=== PATIENT | male | born 1935 | race Caucasian/White ===

== ENCOUNTER 2017-12-03 06:42 | Inpatient (IN) | payer BC, MEDICARE ==
--- NOTE | 2017-11-19 09:26 | ANES ---
Anesthesia Pre Procedure Eval HOME MEDICATIONS blood sugar diagnostic strips See Dose Instructions .ROUTE .MEDSUPPLY #20 ea 10/15 [Last Taken Unknown] digoxin 250 mcg tablet 0.25 mg PO DAILY 11/04/17 [Last Taken Unknown] fenofibrate nanocrystallized 48 mg tablet 48 mg PO DAILY 11/04/17 [Last Taken Unknown] gemfibrozil 600 mg tablet 600 mg PO BID 11/04/17 [Last Taken Unknown] insulin U-100 regular human 100 unit/mL injection solution 1 sliding scale dose SUB-Q .COMPLEX 11/04/17 [Last Taken Unknown] insulin glargine (U-100) 100 unit/mL (3 mL) subcutaneous pen 15 unit SUB-Q DAILY 11/04/17 [Last Taken Unknown] insulin glargine (U-100) 100 unit/mL (3 mL) subcutaneous pen 24 unit SUB-Q DAILY 11/04/17 [Last Taken Unknown] lancets 30 gauge See Dose Instructions .ROUTE .MEDSUPPLY #25 ea 11/04/17 [Last Taken Unknown] levothyroxine 125 mcg capsule 125 mcg PO DAILY 11/04/17 [Last Taken Unknown] lisinopril 2.5 mg tablet 2.5 mg PO DAILY 11/04/17 [Last Taken Unknown] metformin 850 mg tablet 850 mg PO TID 11/04/17 [Last Taken Unknown] pen needle, diabetic 32 gauge x 5/32" See Dose Instructions .ROUTE .MEDSUPPLY # 10 ea 11/04/17 [Last Taken Unknown] pravastatin 20 mg tablet 20 mg PO DAILY tab 11/04/17 [Last Taken Unknown] tamsulosin 0.4 mg capsule 0.4 mg PO DAILY 11/04/17 [Last Taken Unknown] warfarin 1 mg tablet 1 mg PO DAILY 11/04/17 [Last Taken Unknown] warfarin 5 mg tablet 5 mg PO DAILY 11/04/17 [Last Taken Unknown] Allergies/Adverse Reactions: Allergies Allergy/AdvReac Type Severity Reaction Status Date / Time No Known Allergies Allergy Unverified 11/04/17 10:08 - Planned Procedure Planned Procedure: Left Total Knee Arthroplasty Medication List Reviewed:: Yes Allergies Verified: Yes Medical History (Last Reviewed 11/19/17 @ 09:21 by Koko Tan CRNA) Urinary incontinence (Chronic) Onset Date: Unknown Hypothyroidism (Chronic) Onset Date: Unknown HTN (hypertension) (Chronic) Onset Date: Unknown Diabetes mellitus type 2, controlled, 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 Mother No problems noted. Brother No problems noted. - Family Anesthesia History Family History:: no untoward family reactions to anesthesia, no familial bleeding tendencies, no family history of clotting disorders, no family history of premature - Airway/Neck/Teeth Within Normal Limits:: Yes Teeth Condition: Intact, Stained Neck Exam: non-tender, full range of motion, normal alignment Mallampatti Score: 2 Thyromental (T-M) distance: > 6 cm Mandibulo Hyoid distance: > 3 cm - Respiratory Respiratory: chest non-tender, lungs clear, normal breath sounds Smoking Status: Never smoker Sleep Apnea currently treated: No Sleep Apnea by current assessment: No - Cardiovascular Patient History - Cardiac/Respiratory: Arrhythmias, Hypertension - Hx VSD repair , takes insulin in am. Heart Sounds: S1 & S2, Irregular, Murmur - Anesthesia Assessment and Plan ASA Class: PS, III Anesthesia Type Plan: Block - Adductor canal block for post op pain relief, Spinal - check INR Planned difficult intubation/equipment available: No
[~2017-12-03 06:42] MED LIST: MORPHINE SULFATE 15 MG TABLET.SA PO PRN; ROPIVACAINE HCL/PF 100 MG, EPINEPHrine 0.2 MG in NORMAL SALINE 100 ML IJ PRN; TRANEXAMIC ACID 1,000 MG in NORMAL SALINE 100 ML IV PRN; ceFAZolin SODIUM 1 GM VIAL IV PRN
[2017-12-03 08:55] LABS: INR 1.4 INR (0.90-1.10)
[2017-12-03] MEDS: RINGER'S SOLUTION,LACTATED 1,000 ML IV PRN ×3 (09:32→15:38)
--- NOTE | 2017-12-03 10:57 | ANES ---
Anesthesia Pre Procedure Eval Vitals/Labs: Last Vital Signs Temp 36.0 C 12/03/17 08:26 Pulse 58 L 12/03/17 08:26 Resp 18 12/03/17 08:26 BP 163/79 H 12/03/17 08:26 Pulse Ox 98 12/03/17 08:26 HOME MEDICATIONS blood sugar diagnostic strips See Dose Instructions .ROUTE .MEDSUPPLY #20 ea 10/15 [Last Taken 11/29/17] digoxin 250 mcg tablet 0.25 mg PO DAILY 11/04/17 [Last Taken 11/29/17] gemfibrozil 600 mg tablet 600 mg PO BID 11/04/17 [Last Taken 11/29/17] lancets 30 gauge See Dose Instructions .ROUTE .MEDSUPPLY #25 ea 11/04/17 [Last Taken Unknown] levothyroxine 125 mcg capsule 125 mcg PO DAILY 11/04/17 [Last Taken 11/29/17] lisinopril 2.5 mg tablet 2.5 mg PO DAILY 11/04/17 [Last Taken 11/29/17] metformin 850 mg tablet 850 mg PO TID 11/04/17 [Last Taken 11/29/17] pen needle, diabetic 32 gauge x 5/32" See Dose Instructions .ROUTE .MEDSUPPLY # 10 ea 11/04/17 [Last Taken Unknown] pravastatin 20 mg tablet 20 mg PO DAILY tab 11/04/17 [Last Taken 11/29/17] tamsulosin 0.4 mg capsule 0.4 mg PO DAILY 11/04/17 [Last Taken 11/29/17] warfarin 1 mg tablet 1 mg PO DAILY 11/04/17 [Last Taken 11/29/17] warfarin 5 mg tablet 5 mg PO DAILY 11/04/17 [Last Taken 11/29/17] insulin glargine (U-100) 100 unit/mL (3 mL) subcutaneous pen 24 unit SUB-Q DAILY ml 11/25/17 [Last Taken 11/29/17] aspirin 81 mg tablet,delayed release 81 mg PO DAILY 11/27/17 [Last Taken ] Allergies/Adverse Reactions: Allergies Allergy/AdvReac Type Severity Reaction Status Date / Time No Known Allergies Allergy Verified 12/03/17 08:54 - Planned Procedure Planned Procedure: Left Total Knee Arthroplasty Medication List Reviewed:: Yes Allergies Verified: Yes Medical History (Last Updated 12/03/17 @ 10:55 by Vernon Staples CRNA) Urinary incontinence (Chronic) Onset Date: Unknown Hypothyroidism (Chronic) Onset Date: Unknown HTN (hypertension) (Chronic) Onset Date: Unknown Diabetes mellitus type 2, controlled, 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 Mother No problems noted. Brother No problems noted. - Family Anesthesia History Family History:: no untoward family reactions to anesthesia, no familial bleeding tendencies, no family history of clotting disorders, no family history of premature - Airway/Neck/Teeth Within Normal Limits:: Yes Teeth Condition: Stained Neck Exam: limited range of motion Mallampatti Score: 2 Thyromental (T-M) distance: > 6 cm Mandibulo Hyoid distance: > 3 cm - Respiratory Respiratory: lungs clear Discussed smoking cessation including day of surgery: No Sleep Apnea currently treated: No Sleep Apnea by current assessment: No Discussed Risks/Treatment of KEVIN: No - Cardiovascular Tolerates Activity: Poor Heart Sounds: Irregular - Anesthesia Assessment and Plan ASA Class: PS, IV Anesthesia Type Plan: General ET Planned difficult intubation/equipment available: No
[2017-12-03] MEDS ORDERED: INSULIN REGULAR, HUMAN 100 UNITS/ML VIAL IV ONE (10:59)
[2017-12-03] MEDS ORDERED: MAGNESIUM HYDROXIDE 30 ML UDC PO PRN (12:46)
[2017-12-03] MEDS ORDERED: ONDANSETRON HCL/PF 2 MG/ML VIAL IV PRN (12:46)
[2017-12-03] MEDS ORDERED: ACETAMINOPHEN 500 MG TABLET PO PRN (12:46)
[2017-12-03] MEDS ORDERED: diphenhydrAMINE HCL 50 MG/ML VIAL IV PRN (12:46)
[2017-12-03] MEDS ORDERED: MAG HYDROX/ALUMINUM HYD/SIMETH 30 ML UDC PO PRN (12:46)
--- NOTE | 2017-12-03 12:46 | OR ---
Operative Report - Dictated Report Narrative: Date: 12/03/2017 Preoperative diagnosis: Left Knee degenerative joint disease. Postoperative diagnosis: Left Knee degenerative joint disease. Procedure: Left Total knee arthroplasty. Surgeon: Allan Contreras M.D. Pipe Wrapping Machine Operator: Zeus Molina PA-C Anesthesia: General and local periarticular joint injection. Complications: None Specimens: Bone for disposal. Estimated blood loss: Minimal. Tourniquet time: 75 Minutes at 325 millimeters of mercury. Retained implants: Depuy Attune size 7 left lugged cemented posterior stabilized femoral component. Size 7 fixed-bearing cemented tibial platform. 7 by 5 millimeter posterior stabilized cross-linked tibial insert. 38 millimeter medialized patella button. Indications: Mr. Garcia is a 82 year-old gentleman who has had long-standing left knee pain and arthrosis. This patient was followed in my clinic for period of time with significant complaints of left knee pain consistent with arthritic changes. He had failed conservative measures including, but not limited to, activity modification, passage of time, medications, and other conservative measures. Patient wished to proceed with surgical treatment. The risks, benefits, and alternatives were discussed in clinic. The risks of , blood clots, bleeding, infection, nerve/tendon blood vessel/ injury, malposition of components, intraoperative fracture, postoperative limited range of motion, persistent pain, failure of components, and need for additional procedures. Patient wished to proceed consent was obtained after answering all questions. Procedure: After marking the correct extremity on the floor, the patient was taken to the operating room. A timeout was performed. IV antibiotics consisting of Ancef were administered prior to the procedure. A general anesthetic was induced, per my request, on the operative table with all bony prominences well-padded. Gonzales catheter was placed, and a bump was placed under the operative side buttock. SCDs and MILES hose were utilized on the nonoperative leg. A well-padded tourniquet was applied to the operative thigh. The operative leg was then pre-scrubbed with alcohol, prepped, and draped in a standard sterile fashion. After exsanguinating the extremity with an Esmarch bandage, the tourniquet was inflated. After marking out the anterior knee for standard incision centered over the patella, the skin was incised and dissected down to the joint retinaculum. The joint retinaculum was marked out as well as the horizontal axis of the patella, and a standard medial parapatellar arthrotomy was then made. The most proximal aspect of the quadriceps tendon and the patella tendon insertion were protected from release. A partial synovectomy was performed as well as a resection of the infrapatellar fat pad. The distal femoral fat pad proximal to the trochlea was also resected using cautery. The soft tissues were elevated off the medial aspect of the proximal tibia using a Mitchell elevator ensuring that we did not transect the medial collateral ligament. Upon initial evaluation range of motion was approximately 5 degrees to 130 degrees of flexion. There were signs of advanced arthrosis in the medial, lateral, and patellofemoral joint spaces. There were large marginal osteophytes which were removed with a rongeur. The knee was hyperflexed and the patella was tucked laterally. Protecting the surrounding soft tissues with Homans, an entry drill was placed down the femoral canal using Whitesides line for guidance into the entry point. The intramedullary femoral alignment donato was utilized in order to cut the distal femur in 5 degrees of valgus resecting 10 millimeters of bone. Next the distal femur was sized to a size 7. A posterior referencing guide was utilized to place the distal femoral cutting block in 3 degrees of external rotation. This was pinned into place. The rotation was confirmed both visually and based on anatomic landmarks. The 4 in 1 cutting jig of the appropriate size was utilized in order to make all bony cuts. The angle wing was used to ensure no notching. Retractors were utilized in order to protect surrounding soft tissues. This cut did not result in any excessive notching. We then cut the box centered over the distal femur. This allowed for resection of the anterior and posterior cruciate ligaments. I then turned my attention to the preparation of the tibia. Using an extra medullary tibial alignment donato, 2 millimeters of bone was resected off the medial articular surface. This was made perpendicular to the mechanical axis of the joint with the alignment donato centered over the ankle mortise. The alignment donato was checked and was noted to be parallel to the mechanical axis, centered over the medial one third of the tibial tubercle, paralleling the anterior surface of the tibia. We then turned our attention to the remaining meniscus and soft tissues. These were removed while protecting the surrounding ligaments and soft tissues. The marginal osteophytes off the anterior, posterior, medial, lateral aspects of the femur and tibia were removed. The tibia was sized out to a size 7. Next the tibia was drilled and punched in an externally rotated position. Next the trial femur and a series of tibial inserts were utilized in order to allow for full extension and maximal flexion. It was found that a 5 millimeter insert gave the best range of motion and stability at multiple flexion points as well as at full extension there was less than 2 mm of gapping both medially and laterally. There is minimal anterior translation with the knee at 90 degrees of flexion and no signs of being able to dislocate the knee. The patella was then prepared. The initial thickness was 25 millimeters. This was reamed down to 15 millimeters parallel to the anterior surface of the patella. It was sized out to a size 38 medialized patella button. This was then drilled and trialed. Without any medial restraint the patella tracked appropriately and did not sublux or dislocate. At this point, it was felt these were the appropriate sized implants, and all trials were removed. The periarticular joint injection consisting of ropivacaine and epinephrine were injected into the periarticular joint tissues. The bony surfaces were thoroughly irrigated with a pulsatile-suction saline irrigation device. A bone plug from the prior resected anterior chamfer cut was placed into the drill hole at the distal femur. The bony surfaces were then dried in preparation for placement of the implants. The cement was vacuum mixed per the marketing services vice president's instructions. The cement was placed on the dry bony surfaces and posterior aspect of the implants. The implants were impacted into place, removing all extruded cement. At this point anesthesia administered tranexamic acid per protocol intravenously. The knee was placed in extension with axial loading with the trial insert while the cement cured. Once the cement cured, all remaining extruded cement was removed. The knee was placed through a range of motion with the trial insert to ensure appropriate range of motion and stability. Final range of motion was approximately 0 to 130 degrees. The knee was again thoroughly irrigated with pulsatile saline lavage. The final polyethylene insert was then impacted into place ensuring no retained soft tissues. The remaining periarticular joint injection was injected. A medium Hemovac drain was placed exiting superior laterally. The knee was then placed over a triangle and the arthrotomy was closed with interrupted #1 Vicryl after thoroughly irrigating the joint. The deep and subcutaneous tissues were closed with interrupted 0 and 3-0 Vicryl respectively. Skin was closed with a running subcutaneous 3-0 Monocryl and loulou. Xeroform, 4 x 4's, Sof-Rol, and a full leg Ken wrap were applied. All sponge, needle, blade, and instrument counts were correct prior to closing the wounds. Postoperative condition: The patient was awoken and transferred to the postanesthesia care unit in stable condition. Plan is to be admitted to the inpatient medical/surgical floor postoperatively for 24 hours of IV antibiotics , physical therapy, occupational therapy, and medical comanagement. Patient will be weightbearing as tolerated with range of motion as tolerated. DVT prophylaxis will be with SCDs, MILES hose, and pharmacological anticoagulation. Anticipated hospital stay is approximately 1-3 days.
--- NOTE | 2017-12-03 13:26 | ANES ---
Post Anesthesia Discharge - Transfer of Care Transfer of Care handoff given to nurse: Yes - Discharge from PACU Discharge from PACU when meets criteria: Yes - Discharge to ASU Discharge to ASU-no complications/pt stable: Yes
--- NOTE | 2017-12-03 15:15 | ANES ---
Post Anesthesia Assessment - Vital Signs Vitals: Last Vital Signs Temp 36.6 C 12/03/17 14:50 Pulse 77 12/03/17 15:13 Resp 16 12/03/17 15:13 BP 140/63 12/03/17 15:13 Pulse Ox 90 L 12/03/17 15:13 Airway Patency: Normal - Mental Status Level Of Consciousness: Awake - Pain Level Pain Score: 5 - N/V Assessment Nausea/Vomiting Presence: None Dehydration:: No
[2017-12-03] MEDS: MORPHINE SULFATE 2 MG/ML DISP.SYRIN IV PRN ×2 (15:36→16:51)
[2017-12-03] MEDS: ceFAZolin SODIUM 1 GM in DEXTROSE 5 % IN WATER 100 ML IV SCH ×4 (16:53→23:32)
[2017-12-03] MEDS: WARFARIN SODIUM 5 MG TABLET PO SCH (16:58)
[2017-12-03] MEDS: oxyCODONE HCL/ACETAMINOPHEN 1 TAB TABLET PO PRN (17:28)
[2017-12-03] MEDS: TAMSULOSIN HCL 0.4 MG CAP.SR.24H PO SCH (19:35)
[2017-12-03] MEDS: SENNOSIDES/DOCUSATE SODIUM 1 TAB TABLET PO SCH (21:24)
[2017-12-03] MEDS: GEMFIBROZIL 600 MG TABLET PO SCH (21:24)
[2017-12-03] MEDS: SIMVASTATIN 10 MG TABLET PO SCH (21:25)
[2017-12-04] MEDS: RINGER'S SOLUTION,LACTATED 1,000 ML IV PRN (02:01)
[2017-12-04] MEDS: ceFAZolin SODIUM 1 GM in DEXTROSE 5 % IN WATER 100 ML IV SCH ×2 (04:26)
[2017-12-04 05:30] LABS: Hematocrit 36.5 % (42.0-52.0); Hemoglobin 11.1 gm/dL (13.5-18.0); Mean Cell Volume 87.3 fl (78-100); Mean Corpuscular Hemoglobin 26.6 pg (27-31); Mean Corpuscular Hgb Conc 30.4 g/dl (32-36); Mean Platelet Volume 10.2 fl (8-11.3); Platelet Count 70 K/mm3 (150-450); Red Blood Count 4.18 M/mm3 (4.7-6.0); White Blood Count 4.5 K/mm3 (4.0-10.5)
[2017-12-04 05:34] LABS: Anion Gap 6.6 mmol/L (6.8-13.8); BUN/Creatinine Ratio 14.9 (9.0-21.6); Calcium * 8.5 mg/dL (7.9-10.9); Carbon Dioxide 28.2 mmol/L (24-32.6); Estimated Creat Clear 33.8; Potassium 4.8 mmol/L (3.4-4.6)
[2017-12-04 05:35] LABS: Prothrombin Time (Patient) 13.6 Seconds (9.0-11.0)
[2017-12-04 05:39] LABS: INR 1.36 INR (0.90-1.10)
[2017-12-04] MEDS: MORPHINE SULFATE 2 MG/ML DISP.SYRIN IV PRN (07:02)
[2017-12-04] MEDS: LEVOTHYROXINE SODIUM 125 MCG TABLET PO SCH (07:11)
--- NOTE | 2017-12-04 08:14 | PN ---
Subjective - Date and Time Seen Date: 12/04/17 Time: 08:10 Subjective Narrative: Subjective: Reports some discomfort. Was able to get to the chair with therapy. Pain is well-controlled. Voiding without any complications. Tolerating by mouth intake. Denies any nausea or vomiting. Denies calf pain. Slept well. Physical exam: Alert and oriented to person, place and time Left lower Extremity: Palpable dorsalis pedis pulse. Sensation grossly intact to light touch. Dressings clean and dry. Able to flex and extend ankle and toes. No excessive drainage. Calf and thigh are soft and nontender. Assessment: Postop day 1 status post left total knee arthroplasty. Plan: Due to the need for pain control, post-operative limited mobility, protection of the surgical site and joint, monitoring of the wound, and the management of chronic medical conditions, he requires continued inpatient care. Continue with physical and occupational therapy weightbearing as tolerated. Continue with anticoagulation - Lovenox and Coumadin. 24 hours postoperative prophylactic antibiotics. Pain control with goal to rely on oral medications. Continue bowel regimen. Will need 6 weeks with walker or assitive device to protect joint while ambulating during the recovery process. Discharge planning - we are anticipating that he will need skilled therapy and thus he will stay here to Friday at which time he can be transferred to a skilled therapy facility. Discontinue drain and Gonzales catheter. Repeat hemogram and BMP in a.m. in order to monitor for postoperative anemia and electrolyte imbalance. Objective - Vitals Vitals: Last Vital Signs Temp 36.5 C 12/04/17 06:51 Pulse 77 12/04/17 06:51 Resp 18 12/04/17 06:51 BP 131/73 12/04/17 06:51 Pulse Ox 98 12/04/17 06:51 - Abnormal Lab Findings Abnormal Lab Findings: Abnormal Lab Results 12/03/17 12/03/17 12/04/17 Range/Units 08:35 08:35 05:22 RBC 4.18 L (4.7-6.0) M/mm3 Hgb 11.1 L (13.5-18.0) gm/dL Hct 36.5 L (42.0-52.0) % MCH 26.6 L (27-31) pg MCHC 30.4 L (32-36) g/dl Plt Count 95 L 70 L (150-450) K/mm3 PT 14.0 H (9.0-11.0) Seconds INR (Anticoag Therapy) 1.40 H (0.90-1.10) INR Potassium (3.4-4.6) mmol/L Anion Gap (6.8-13.8) mmol/L BUN (6-23) mg/dL Creatinine (0.4-1.4) mg/dL Est GFR (Non-Af Amer) (60-130) mL/min Random Glucose (70-110) mg/dL 12/04/17 12/04/17 Range/Units 05:22 05:22 RBC (4.7-6.0) M/mm3 Hgb (13.5-18.0) gm/dL Hct (42.0-52.0) % MCH (27-31) pg MCHC (32-36) g/dl Plt Count (150-450) K/mm3 PT 13.6 H (9.0-11.0) Seconds INR (Anticoag Therapy) 1.36 H (0.90-1.10) INR Potassium 4.8 H (3.4-4.6) mmol/L Anion Gap 6.6 L (6.8-13.8) mmol/L BUN 25 H (6-23) mg/dL Creatinine 1.68 H (0.4-1.4) mg/dL Est GFR (Non-Af Amer) 42 L (60-130) mL/min Random Glucose 186 H (70-110) mg/dL Cauti Physician Documentation - Urinary Catheter Management Urethral (Gonzales) Date of Insertion: 12/03/17 Time of Insertion: 11:20 Assessment/Plan - Problems/Diagnosis (1) Thrombocytopenia Problem: Acute (2) Status post total left knee replacement Problem: Acute (3) Acute blood loss anemia Problem: Acute (4) Atrial fibrillation Problem: Chronic (5) Diabetes mellitus type 2, controlled, without complications Problem: Chronic (6) HTN (hypertension) Problem: Chronic (7) Hypothyroidism Problem: Chronic (8) Urinary incontinence Problem: Chronic (9) Right bundle branch block (RBBB) Problem: Chronic
[2017-12-04] MEDS: LISINOPRIL 2.5 MG TABLET PO SCH (08:17)
[2017-12-04] MEDS: DIGOXIN 0.25 MG TABLET PO SCH (08:18)
[2017-12-04] MEDS: INSULIN GLARGINE,HUM.REC.ANLOG 100 UNITS/ML VIAL SC SCH (08:18)
[2017-12-04] MEDS: GEMFIBROZIL 600 MG TABLET PO SCH ×2 (08:19→21:06)
[2017-12-04] MEDS: oxyCODONE HCL/ACETAMINOPHEN 1 TAB TABLET PO PRN ×3 (08:22→21:07)
[2017-12-04] MEDS ORDERED: WARFARIN SODIUM 1 MG TABLET PO SCH (09:00)
[2017-12-04] MEDS ORDERED: WARFARIN SODIUM 5 MG TABLET PO SCH (09:00)
[2017-12-04] MEDS ORDERED: ENOXAPARIN SODIUM 30 MG/0.3 ML SYRG SC SCH (11:47)
[2017-12-04] MEDS: WARFARIN SODIUM 5 MG TABLET PO SCH (17:28)
[2017-12-04] MEDS: TAMSULOSIN HCL 0.4 MG CAP.SR.24H PO SCH (21:06)
[2017-12-04] MEDS: SIMVASTATIN 10 MG TABLET PO SCH (21:07)
[2017-12-04] MEDS: SENNOSIDES/DOCUSATE SODIUM 1 TAB TABLET PO SCH (21:07)
[2017-12-05] MEDS: oxyCODONE HCL/ACETAMINOPHEN 1 TAB TABLET PO PRN ×2 (04:37→13:04)
[2017-12-05 05:19] LABS: Hematocrit 36.3 % (42.0-52.0); Hemoglobin 11.1 gm/dL (13.5-18.0); Mean Cell Volume 87.3 fl (78-100); Mean Corpuscular Hemoglobin 26.7 pg (27-31); Mean Corpuscular Hgb Conc 30.6 g/dl (32-36); Platelet Count 81 K/mm3 (150-450); Red Blood Count 4.16 M/mm3 (4.7-6.0); Red Cell Distribution Width 14.1 % (11.5-14.0); White Blood Count 6.3 K/mm3 (4.0-10.5)
[2017-12-05 05:27] LABS: Prothrombin Time (Patient) 20.6 Seconds (9.0-11.0)
[2017-12-05 05:30] LABS: INR 2.05 INR (0.90-1.10)
[2017-12-05] MEDS: LEVOTHYROXINE SODIUM 125 MCG TABLET PO SCH (07:02)
[2017-12-05] MEDS: GEMFIBROZIL 600 MG TABLET PO SCH ×2 (08:15→20:22)
[2017-12-05] MEDS: LISINOPRIL 2.5 MG TABLET PO SCH (08:15)
[2017-12-05] MEDS: DIGOXIN 0.25 MG TABLET PO SCH (08:15)
[2017-12-05] MEDS: INSULIN GLARGINE,HUM.REC.ANLOG 100 UNITS/ML VIAL SC SCH (08:18)
[2017-12-05 10:12] LABS: Anion Gap 5.9 mmol/L (6.8-13.8); BUN/Creatinine Ratio 17.3 (9.0-21.6); Calcium * 9.3 mg/dL (7.9-10.9); Carbon Dioxide 30.9 mmol/L (24-32.6); Estimated Creat Clear 32.8; Potassium 4.8 mmol/L (3.4-4.6)
--- NOTE | 2017-12-05 13:16 | PN ---
Subjective - Date and Time Seen Date: 12/05/17 Time: 13:14 Subjective Narrative: Subjective: Reports continued pain. Not adequately controlled yet. Was able to walk to the door with therapy. Voiding without any complications. Tolerating by mouth intake. Denies any nausea or vomiting. Denies calf pain. Slept well. Physical exam: Alert and oriented to person, place and time Left lower Extremity: Palpable dorsalis pedis pulse. Sensation grossly intact to light touch. Dressings clean and dry. Able to flex and extend ankle and toes. No excessive drainage. Calf and thigh are soft and nontender. Incision benign Assessment: Postop day 2 status post left total knee arthroplasty. Plan: Due to the need for pain control, post-operative limited mobility, protection of the surgical site and joint, monitoring of the wound, and the management of chronic medical conditions, he requires continued inpatient care. Continue with physical and occupational therapy weightbearing as tolerated. Continue with anticoagulation - Lovenox and Coumadin. DC lovenox as INR at 2. Pain control with goal to rely on oral medications - will add long acting and monitor for excessive sedation. Continue bowel regimen. Will need 6 weeks with walker or assitive device to protect joint while ambulating during the recovery process. Discharge planning - we are anticipating that he will need skilled therapy and thus he will stay here to Friday at which time he can be transferred to a skilled therapy facility. BUN/CR near base line, remaining labs stable. Objective - Vitals Vitals: Last Vital Signs Temp 36.4 C 12/05/17 11:34 Pulse 91 12/05/17 11:34 Resp 17 12/05/17 11:34 BP 107/53 12/05/17 11:34 Pulse Ox 93 12/05/17 11:34 - Abnormal Lab Findings Abnormal Lab Findings: Abnormal Lab Results 12/05/17 12/05/17 12/05/17 Range/Units 05:00 05:17 05:17 RBC 4.16 L (4.7-6.0) M/mm3 Hgb 11.1 L (13.5-18.0) gm/dL Hct 36.3 L (42.0-52.0) % MCH 26.7 L (27-31) pg MCHC 30.6 L (32-36) g/dl RDW 14.1 H (11.5-14.0) % Plt Count 81 L (150-450) K/mm3 PT 20.6 H (9.0-11.0) Seconds INR (Anticoag Therapy) 2.05 H (0.90-1.10) INR Potassium 4.8 H (3.4-4.6) mmol/L Anion Gap 5.9 L (6.8-13.8) mmol/L BUN 30 H (6-23) mg/dL Creatinine 1.73 H (0.4-1.4) mg/dL Est GFR (Non-Af Amer) 40 L (60-130) mL/min Random Glucose 184 H (70-110) mg/dL Cauti Physician Documentation - Urinary Catheter Management Urethral (Gonzales) Date of Insertion: 12/03/17 Time of Insertion: 11:20 Date of Removal: 12/04/17 Time of Removal: 08:30 Assessment/Plan - Problems/Diagnosis (1) Thrombocytopenia Problem: Acute (2) Status post total left knee replacement Problem: Acute (3) Acute blood loss anemia Problem: Acute (4) Atrial fibrillation Problem: Chronic (5) Diabetes mellitus type 2, controlled, without complications Problem: Chronic (6) HTN (hypertension) Problem: Chronic (7) Hypothyroidism Problem: Chronic (8) Urinary incontinence Problem: Chronic (9) Right bundle branch block (RBBB) Problem: Chronic
[2017-12-05] MEDS ORDERED: MORPHINE SULFATE 15 MG TABLET.SA PO SCH (13:30)
[2017-12-05] MEDS: WARFARIN SODIUM 5 MG TABLET PO SCH (16:27)
[2017-12-05] MEDS: MORPHINE SULFATE 15 MG TABLET.SA PO SCH (16:28)
[2017-12-05] MEDS: TAMSULOSIN HCL 0.4 MG CAP.SR.24H PO SCH (18:42)
[2017-12-05] MEDS: SENNOSIDES/DOCUSATE SODIUM 1 TAB TABLET PO SCH (20:23)
[2017-12-05] MEDS: SIMVASTATIN 10 MG TABLET PO SCH (20:23)
[2017-12-06 06:02] LABS: INR 3.21 INR (0.90-1.10); Prothrombin Time (Patient) 32.5 Seconds (9.0-11.0)
[2017-12-06] MEDS: LEVOTHYROXINE SODIUM 125 MCG TABLET PO SCH (06:34)
[2017-12-06] MEDS: MORPHINE SULFATE 15 MG TABLET.SA PO SCH (07:07)
[2017-12-06] MEDS: oxyCODONE HCL/ACETAMINOPHEN 1 TAB TABLET PO PRN (10:30)
[2017-12-06] MEDS: DIGOXIN 0.25 MG TABLET PO SCH (10:30)
[2017-12-06] MEDS: INSULIN GLARGINE,HUM.REC.ANLOG 100 UNITS/ML VIAL SC SCH (10:31)
[2017-12-06] MEDS: GEMFIBROZIL 600 MG TABLET PO SCH (10:31)
[2017-12-06] MEDS: LISINOPRIL 2.5 MG TABLET PO SCH (10:31)
--- NOTE | 2017-12-06 12:04 | DS ---
(1) Thrombocytopenia Problem: Chronic (2) Status post total left knee replacement Problem: Acute (3) Acute blood loss anemia Problem: Acute (4) Atrial fibrillation Problem: Chronic (5) Diabetes mellitus type 2, controlled, without complications Problem: Chronic (6) HTN (hypertension) Problem: Chronic (7) Hypothyroidism Problem: Chronic (8) Urinary incontinence Problem: Chronic (9) Right bundle branch block (RBBB) Problem: Chronic Description of Stay: Mr. Garcia was admitted to the floor after undergoing left total knee arthroplasty. Tolerated this well. Was admitted to the floor postoperatively for 24 hours of IV antibiotics, pain control, medical comanagement, and occupational and physical therapy. OT and PT were consulted to assist with activities of daily living and ambulation. Was made weightbearing as tolerated with range of motion as tolerated. Pain was initially controlled with IV regimen. This was transitioned to oral once tolerating a by mouth intake. Was resumed on home diet and medications. Had a Gonzales catheter inserted and the operating room which was discontinued on postoperative day 1. A drain was placed intraoperatively into the knee which was discontinued on postoperative day 1. He was resumed on his Coumadin and Lovenox SCD and MILES hose were utilized for DVT prophylaxis. Vital signs remained stable to the hospital course. Serial labs were obtained which showed a final hemoglobin of 11.1 grams. BMP was reviewed and was stable. Physical examination throughout the hospital course showed an extremity that had sensation that was intact to light touch, palpable pulses, a benign wound, motor intact to the toes, ankle, and knee. Knee range of motion was approximately 5 degrees to 60 degrees. he was slow to progress physical therapy and he was living situation as well as his need for increased mobility he was transferred to a shelter facility for additional therapy. Instructions: Continue with weightbearing as tolerated and range of motion as tolerated. Do not bathe or soak the wound. Cover wound with dry gauze and tape. Change every 2-3 days as needed if there is any drainage. Cover wound while showering. Continue with physical therapy. Continue with diabetic diet. Report any fever over 101.5 Fahrenheit, uncontrolled pain, increased drainage, foul odor of drainage, new or increased calf pain or shortness of breath, or any other significant complaints. Continue with MILES hose on the operative extremity until instructed otherwise. No driving until instructed otherwise. Follow up in approximately 10-14 days. Procedures Performed: see notes below List Procedures: Left total knee arthroplasty Results and Findings: Lab Pending Results 12/03/17 08:35: PT 14.0 H, INR (Anticoag Therapy) 1.40 H 12/03/17 08:35: Plt Count 95 L 12/04/17 05:22: WBC 4.5, RBC 4.18 L, Hgb 11.1 L, Hct 36.5 L, MCV 87.3, MCH 26.6 L, MCHC 30.4 L, RDW 14.0, Plt Count 70 L, MPV 10.2 12/04/17 05:22: PT 13.6 H, INR (Anticoag Therapy) 1.36 H 12/04/17 05:22: Sodium 135, Plasma Sodium 136, Potassium 4.8 H, Chloride 105, Carbon Dioxide 28.2, Anion Gap 6.6 L, BUN 25 H, Creatinine 1.68 H, Est GFR (Non- Af Amer) 42 L, BUN/Creatinine Ratio 14.9, Random Glucose 186 H, Calcium 8.5 12/05/17 05:00: Sodium 134, Plasma Sodium 135, Potassium 4.8 H, Chloride 102, Carbon Dioxide 30.9, Anion Gap 5.9 L, BUN 30 H, Creatinine 1.73 H, Est GFR (Non- Af Amer) 40 L, BUN/Creatinine Ratio 17.3, Random Glucose 184 H, Calcium 9.3 12/05/17 05:17: PT 20.6 H, INR (Anticoag Therapy) 2.05 H 12/05/17 05:17: WBC 6.3 D, RBC 4.16 L, Hgb 11.1 L, Hct 36.3 L, MCV 87.3, MCH 26.7 L, MCHC 30.6 L, RDW 14.1 H, Plt Count 81 L, MPV 10.0 12/06/17 05:55: PT 32.5 H, INR (Anticoag Therapy) 3.21 H Discharge Location: Other Disposition: SNF Condition: Good Discharge Activity: Activity as tolerated, Weight bearing Discharge Diet: Consistent carbs Prison Therapy: Physicial Therapy, Occupation Therapy Additional Patient Instructions (free text): To [facility] on Friday SNF. Follow up appointment with Dr Contreras on Friday12/23/17 at 10:45am. PT and OT to evaluate and treat. - Ice machine as tolerated when sedentary, at least 4 hours a day, no maximum time. - CPM 0-70 degrees flexion, progress as tolerated up to 110 increasing 10 degrees daily as tolerated, use 3 times a day for 1-2 hours at a time, may use longer periods or more often pending patients comfort. Prescriptions (Any new or edited meds): Morphine Sulfate [Ms Contin] 15 mg PO BID@0800,1999 #20 tablet. oxyCODONE HCL/ACETAMINOPHEN [Percocet 5 MG/325 MG] 2 tab PO Q4H PRN #60 tab PRN Reason: Moderate Pain (Pain Scale 4-6) Complete Home Medications List: Complete Home Medication List: blood sugar diagnostic strips See Dose Instructions .ROUTE .MEDSUPPLY #20 ea 10/15 digoxin 250 mcg tablet 0.25 mg PO DAILY 11/04/17 lancets 30 gauge See Dose Instructions .ROUTE .MEDSUPPLY #25 ea 11/04/17 levothyroxine 125 mcg capsule 125 mcg PO DAILY 11/04/17 lisinopril 2.5 mg tablet 2.5 mg PO DAILY 11/04/17 metformin 850 mg tablet 850 mg PO TID 11/04/17 pen needle, diabetic 32 gauge x " See Dose Instructions .ROUTE .MEDSUPPLY # 10 ea 11/04/17 pravastatin 20 mg tablet 20 mg PO DAILY tab 11/04/17 tamsulosin 0.4 mg capsule 0.4 mg PO DAILY 11/04/17 warfarin 1 mg tablet 1 mg PO DAILY 11/04/17 warfarin 5 mg tablet 5 mg PO DAILY 11/04/17 insulin glargine (U-100) 100 unit/mL (3 mL) subcutaneous pen 24 unit SUB-Q DAILY ml 11/25/17 aspirin 81 mg tablet,delayed release 81 mg PO DAILY 11/27/17 Fenofibrate Nanocrystallized [Tricor] 48 mg PO DAILY 12/03/17 Morphine Sulfate [Ms Contin] 15 mg PO BID@0800,1999 #20 tablet.sa 12/06/17 oxyCODONE HCL/ACETAMINOPHEN [Percocet 5 MG/325 MG] 2 tab PO Q4H PRN #60 tab 11/15
[2017-12-06 12:22] VITALS: BP 110/58
== END 2017-12-06 12:50 | DRG 470 ==
LOC: MS 06:42 → EDSTATUS 10:15
PROVIDERS: ADMIT Orthopaedic Surgery; ATTEND Orthopaedic Surgery
CPT/HCPCS: 36415; 73560; 80048; 85027; 85049; 85610; 97110; 97116; 97161; 97165; 97530; J2405